=== PATIENT | male | born 1960 | race African-American/Black ===

== ENCOUNTER 2019-07-23 14:15 | Inpatient (IN) | payer OTHER ==
[2019-07-23 15:03] VITALS: BMI 21.5
--- NOTE | 2019-07-23 15:43 | HP ---
COWS - Scale Resting Pulse: 1= DC 81-100 (Pt has NEGATIVE UTOX for OPIATES) Sweatin=Flushed/Facial Moisture Restless Observation: 1= Difficult to Sit Still Pupil Size: 0= Normal to Room Light Bone or Joint Aches: 2= Severe Diffuse Aches Runny Nose/ Eye Tearin= Runny Nose/Eyes GI Upset > 30mins: 1= Stomach Cramp Tremor Observation: 2= Slight Tremor Visible Yawning Observation: 1= 1-2x During Session Anxiety or Irritability: 2=Irritable/Anxious Goose Flesh Skin: 0=Smooth Skin COWS Score: 14 CIWA Score Nausea/Vomitin Muscle Tremors: 4-Moderate,w/Arms Extend Anxiety: 3 Agitation: 1-Slight > Activity Paroxysmal Sweats: 3 Orientation: 0-Oriented Tacttile Disturbances: 0-None Auditory Disturbances: 0-None Visual Disturbances: 0-None Headache: 0-None Present CIWA-Ar Total Score: 13 - Admission Criteria OASAS Guidelines: Admission for Medically Managed Detox: Requires at least one of the followin. CIWA greater than 12 2. Seizures within the past 24 hours 3. Delirium tremens within the past 24 hours 4. Hallucinations within the past 24 hours 5. Acute intervention needed for co occurring medical disorder 6. Acute intervention needed for co occurring psychiatric disorder 7. Severe withdrawal that cannot be handled at a lower level of care (continued vomiting, continued diarrhea, abnormal vital signs) requiring intravenous medication and/or fluids 8. Patient presents the following: CIWA greater than 12, Seizures, delirium tremens or hallucinations in the past 12 hours Admission Criteria Met: Admission criteria met Admitting History and Physical - Admission Chief Complaint: alcohol and heroin detox History of Present Illness: Mr. Gottlieb is a 59 yo man with a pmhx of seizures, HTN, who presents for alcohol , crack, and heroin abuse and detox. The patient states he has been using for over 30 yrs and has done rehab 3 times. Most recently was about 6-8yrs ago in [place], he states he remained clean for 2 years but then he was around some friends who were drinking and using and he decided to start up again. He states he recently got a new apartment and so he would like to get clean to start a new life. He States he uses 1/2 budle of heroin daily (snorts it, used to inject but stopped ~12y ago). He is not currently enrolled in a suboxone or methadone program and never has been. He also states he is using 1g/ day of crack (smokes). He is also drinking roughly 2.5 pints of vodka per day. He states he needs to drink immediately upon waking because he gets sick. He also states he had a seizure once from alcohol withdrawal 8 years ago. He also endorses blacking out with drinking. Last drink was yesterday at 7-8pm before going to a [facility] in [place] because he knew he wanted to come here for detox / rehab. Pt would like to go to inpatient rehab after detox. Pt states the last time he used heroin was yesterday and last time he used crack was on . He also smokes 2-3 blunts/ day. Admission ROS [facility] Chief Complaint: detox from alcohol Allergies/Adverse Reactions: Allergies Allergy/AdvReac Type Severity Reaction Status Date / Time No Known Allergies Allergy Verified 07/23/19 14:48 - Ebola screening Have you traveled outside of the country in the last 21 days: No (N) Have you had contact with anyone from an Ebola affected area: No Do you have a fever: No - Review of Systems Constitutional: Chills, Diaphoresis, Loss of Appetite EENT: denies: Eye Pain, Ear Pain, Throat Pain Respiratory: reports: Cough, SOB with Exertion, Productive cough Cardiac: reports: Lightheadedness. denies: Chest Pain, Palpitations GI: reports: Nausea, Poor Appetite. denies: Constipated, Diarrhea, Vomiting : denies: Burning Musculoskeletal: reports: Back Pain, Joint Pain, Muscle Pain Integumentary: denies: Lumps, Pruritus, Rash Neuro: reports: Numbness (in fingers and toes), Tingling (in fingers and toes). denies: Headache Endocrine: reports: No Symptoms Reported Hematology: denies: Blood Clots, Easy Bleeding Psychiatric: reports: Anxious, Depressed, other (bipolar disorder) Other Systems: Reviewed and Negative Patient History - Smoking Cessation Smoking history: Current every day smoker Have you smoked in the past 12 months: Yes Aproximately how many cigarettes per day: 10 Initiated information on smoking cessation: Yes 'Breaking Loose' booklet given: 07/23/19 - Substances abused Alcohol Substance route: Oral Frequency: Daily Amount used: 3 pints of vodka Age of first use: 12 Date of last use: 07/23/19 Crack Substance route: Smoking Frequency: Daily Amount used: 1 gram Age of first use: 20 Date of last use: 07/22/19 Heroin Substance route: Injection Frequency: Daily Amount used: 6 bags Age of first use: 15 Date of last use: 07/22/19 Marijuana/Hashish Substance route: Smoking Frequency: Daily Amount used: 2 bags Age of first use: 12 Date of last use: 07/22/19 Admission Physical Exam S - Vital Signs Vital Signs: Vital Signs - 24 hr 07/23/19 14:44 Temperature 98.5 F Pulse Rate 84 Respiratory 20 Rate Blood Pressure 157/97 - Physical General Appearance: Yes: Within Normal Limits, Appropriately Dressed, Tremorous , Anxious HEENTM: Yes: EOMI, Hearing grossly Normal, Pharynx Normal, Other (poor dentition , missing top front teeth) Respiratory: Yes: Within Normal Limits, Lungs Clear, Normal Breath Sounds Neck: Yes: Within Normal Limits, No masses,lesions,Nodules, Trachea in good position Cardiology: Yes: Within Normal Limits, Regular Rhythm, Regular Rate, S1, S2 Abdominal: Yes: Normal Bowel Sounds, Non Tender, Flat, Soft, Hernia (reducible, diathasis of upper abdominal muscles) Back: Yes: Within Normal Limits, Normal Inspection. No: CVA Tenderness Musculoskeletal: Yes: Within Normal Limits, full range of Motion, Gait Steady Extremities: Yes: Within Normal Limits, Normal Capillary Refill, Normal Inspection, Non-Tender Neurological: Yes: Within Normal Limits, manager utility II-XII NML intact, Fully Oriented, Motor Strength 5/5, Normal Mood/Affect, Normal Response Integumentary: Yes: Within Normal Limits, Normal Color, Dry, Warm Lymphatic: Yes: Within Normal Limits Breathalyzer - Breathalyzer Breathalyzer: 0 Urine Drug Screen - Test Device Lot number: [id number] Expiration date: 02/18/21 - Control Is test valid?: Yes - Results Drug screen NEGATIVE: No Urine drug screen results: [facility] Inpatient Rehab Admission - Rehab Decision to Admit Inpatient rehab admission?: No
[2019-07-23] MEDS ORDERED: chlordiazePOXIDE HCL 25 MG CAPSULE PO PRN (16:03)
[2019-07-23] MEDS ORDERED: IBUPROFEN 400 MG TABLET (FP) PO PRN (16:03)
[2019-07-23] MEDS ORDERED: MAGNESIUM HYDROX 2400MG/30ML ORAL SUSPENSION 30 ML CUP PO PRN (16:03)
[2019-07-23] MEDS ORDERED: ACETAMINOPHEN 325 MG TABLET (FP) PO PRN ×2 (16:03)
[2019-07-23] MEDS ORDERED: MAGNESIUM CITRATE 300 ML BOTTLE PO PRN (16:03)
[2019-07-23] MEDS ORDERED: METHOCARBAMOL 500 MG TABLET PO PRN (16:03)
[2019-07-23] MEDS ORDERED: MAG HYDROX/AL HYDROX/SIMETH 30 ML UNIT-DOSE CUP PO PRN (16:03)
[2019-07-23] MEDS ORDERED: hydrOXYzine PAMOATE 25 MG CAPSULE (FP) PO PRN (16:03)
[2019-07-23] MEDS ORDERED: MENTHOL/PHENOL 1 EACH UD MM PRN (16:03)
[2019-07-23] MEDS ORDERED: BISMUTH SUBSALICYLATE 524 MG/30 ML UD PO PRN (16:03)
--- NOTE | 2019-07-23 16:17 | PN ---
Teaching Attending Note Name of Resident: Ute Hanson ATTENDING PHYSICIAN STATEMENT I saw and evaluated the patient. I reviewed the resident's note and discussed the case with the resident. I agree with the resident's findings and plan as documented. SUBJECTIVE: this 59 years old male with alcohol dependence,heroin abused, nicotine dependence seeking detox,syncope,seizure OBJECTIVE: Vital Signs Temperature 98.5 F 07/23/19 14:44 Pulse Rate 84 07/23/19 14:44 Respiratory Rate 07/23/19 14:44 Blood Pressure 157/97 07/23/19 14:44 O2 Sat by Pulse Oximetry (%) ASSESSMENT AND PLAN: this 59 years old male with alcohol dependence,heroin abused,syncope ,seizure, opiate is negative, need inpatient detox from alcohol,librium regimen,plan to go to out patient program after detox, patient aware he will not get methadone dx alcohol dependence with uncom withdrawal syncope seizure hypertension neuropathy heroin abused
[2019-07-23] MEDS: GABAPENTIN 400 MG CAPSULE (FP) PO SCH ×2 (17:09→23:25)
[2019-07-23] MEDS: chlordiazePOXIDE HCL 25 MG CAPSULE PO SCH ×2 (17:09→22:19)
[2019-07-23] MEDS: THIAMINE HCL 100 MG TABLET (FP) PO SCH (22:19)
[2019-07-23] MEDS: MELATONIN 5 MG TABLETS PO PRN (22:20)
[2019-07-24] MEDS: chlordiazePOXIDE HCL 25 MG CAPSULE PO SCH ×4 (05:17→22:38)
[2019-07-24] MEDS: GABAPENTIN 400 MG CAPSULE (FP) PO SCH ×3 (07:35→23:21)
[2019-07-24 10:12] LABS: HEMATOCRIT 39.8 % (35.4-49); HEMOGLOBIN 12.9 GM/dL (11.7-16.9); MCH 27.8 pg (25.7-33.7); MCHC 32.4 g/dl (32.0-35.9); MEAN CELL VOLUME 85.7 fl (80-96); MEAN PLT VOLUME 8.5 fl (7.5-11.1); PLATELET COUNT 230 K/MM3 (134-434); RBC 4.64 M/mm3 (4.00-5.60); WHITE BLOOD COUNT 7.3 K/mm3 (4.0-10.0)
[2019-07-24 10:16] LABS: ALBUMIN 3.6 g/dl (3.4-5.0); BILIRUBIN,TOTAL 0.5 mg/dL (0.2-1); CALCIUM 8.9 mg/dL (8.5-10.1); CREATININE 0.9 mg/dL (0.55-1.3); POTASSIUM 3.8 mmol/L (3.5-5.1)
[2019-07-24] MEDS: amLODIPine BESYLATE 10 MG TABLET (FP) PO SCH (10:17)
[2019-07-24] MEDS: PRENATAL VITAMINS W/ FOLIC ACID TABLET (FP) PO SCH (10:17)
[2019-07-24] MEDS: PANTOPRAZOLE 20 MG TABLET (FP) PO SCH (10:17)
[2019-07-24] MEDS ORDERED: ONDANSETRON *ODT* 4 MG TABLET SL ONE (10:32)
--- NOTE | 2019-07-24 11:47 | PN ---
[facility] CIWA - CIWA Score Nausea/Vomitin-Mild Nausea/No Vomiting Muscle Tremors: 2 Anxiety: 2 Agitation: 1-Slight > Activity Paroxysmal Sweats: 2 Orientation: 0-Oriented Tacttile Disturbances: 2-Mild Itch/Numbness/Burn Auditory Disturbances: 0-None Visual Disturbances: 0-None Headache: 0-None Present CIWA-Ar Total Score: 10 [facility] Progress Note (SOAP) Subjective: interrupted sleep, sweats, shakes , nausea, vomiting Objective: 07/24/19 11:52 Vital Signs Temperature 99.2 F 07/24/19 09:11 Pulse Rate 96 H 07/24/19 09:11 Respiratory Rate 18 07/24/19 09:11 Blood Pressure 129/85 07/24/19 09:11 O2 Sat by Pulse Oximetry (%) Laboratory Tests 07/24/19 07/24/19 07/24/19 07:40 07:40 07:40 WBC 7.3 RBC 4.64 Hgb 12.9 Hct 39.8 MCV 85.7 MCH 27.8 MCHC 32.4 RDW 15.0 Plt Count 230 MPV 8.5 Sodium 140 Potassium 3.8 Chloride 104 Carbon Dioxide 28 Anion Gap 8 BUN 8.0 Creatinine 0.9 Est GFR (CKD-EPI)AfAm 107.97 Est GFR (CKD-EPI)NonAf 93.16 Random Glucose 127 H Calcium 8.9 Total Bilirubin 0.5 AST 52 H ALT 44 Alkaline Phosphatase 86 Total Protein 7.0 Albumin 3.6 RPR Titer Nonreactive pt aox3 slightly uncomfortable appearing Assessment: 07/24/19 11:53 withdrawal sx's 07/24/19 11:53 cont detox increase fluids zofran prn
--- NOTE | 2019-07-24 13:27 | EKG ---
Test Reason : Blood Pressure : / mmHG Vent. Rate : 068 BPM Atrial Rate : 068 BPM P-R Int : 154 ms QRS Dur : 094 ms QT Int : 446 ms P-R-T Axes : 072 002 011 degrees QTc Int : 474 ms NORMAL SINUS RHYTHM MODERATE VOLTAGE CRITERIA FOR LVH, MAY BE NORMAL VARIANT BORDERLINE ECG NO PREVIOUS ECGS AVAILABLE Confirmed by SABRINA RODRIGUEZ MD ([id number]) on 07/24/2019 1:26:50 PM Referred By: Confirmed By:SABRINA RODRIGUEZ MD
[2019-07-24] MEDS: CYCLOBENZAPRINE HCL 5 MG TABLET PO SCH ×2 (15:21→22:38)
[2019-07-24] MEDS: THIAMINE HCL 100 MG TABLET (FP) PO SCH (22:38)
[2019-07-24] MEDS: MELATONIN 5 MG TABLETS PO PRN (22:40)
[2019-07-25] MEDS: CYCLOBENZAPRINE HCL 5 MG TABLET PO SCH ×3 (06:01→22:40)
[2019-07-25] MEDS: chlordiazePOXIDE HCL 25 MG CAPSULE PO SCH ×4 (06:14→22:40)
[2019-07-25] MEDS: PRENATAL VITAMINS W/ FOLIC ACID TABLET (FP) PO SCH (10:22)
[2019-07-25] MEDS: PANTOPRAZOLE 20 MG TABLET (FP) PO SCH (10:22)
[2019-07-25] MEDS: amLODIPine BESYLATE 10 MG TABLET (FP) PO SCH (10:22)
--- NOTE | 2019-07-25 10:24 | PN ---
S CIWA - CIWA Score Nausea/Vomitin-No Nausea/No Vomiting Muscle Tremors: None Anxiety: 3 Agitation: 0-Normal Activity Paroxysmal Sweats: 3 Orientation: 0-Oriented Tacttile Disturbances: 0-None Auditory Disturbances: 0-None Visual Disturbances: 0-None Headache: 2-Mild CIWA-Ar Total Score: 8 B[facility] Progress Note (SOAP) Subjective: c/o sweats, anxiety, headache, and interrupted sleep. Objective: 07/25/19 10:23 Vital Signs 07/25/19 07/25/19 07/25/19 03:30 05:56 09:08 Temperature 97.7 F 97.6 F Pulse Rate 67 90 Respiratory 18 18 18 Rate Blood Pressure 117/75 155/98 Laboratory Last Values WBC 7.3 K/mm3 (4.0-10.0) 07/24/19 07:40 RBC 4.64 M/mm3 (4.00-5.60) 07/24/19 07:40 Hgb 12.9 GM/dL (11.7-16.9) 07/24/19 07:40 Hct 39.8 % (35.4-49) 07/24/19 07:40 MCV 85.7 fl (80-96) 07/24/19 07:40 MCH 27.8 pg (25.7-33.7) 07/24/19 07:40 MCHC 32.4 g/dl (32.0-35.9) 07/24/19 07:40 RDW 15.0 % (11.9-15.9) 07/24/19 07:40 Plt Count 230 K/MM3 (134-434) 07/24/19 07:40 MPV 8.5 fl (7.5-11.1) 07/24/19 07:40 Sodium 140 mmol/L (136-145) 07/24/19 07:40 Potassium 3.8 mmol/L (3.5-5.1) 07/24/19 07:40 Chloride 104 mmol/L (98-107) 07/24/19 07:40 Carbon Dioxide 28 mmol/L (21-32) 07/24/19 07:40 Anion Gap 8 MMOL/L (8-16) 07/24/19 07:40 BUN 8.0 mg/dL (7-18) 07/24/19 07:40 Creatinine 0.9 mg/dL (0.55-1.3) 07/24/19 07:40 Est GFR (CKD-EPI)AfAm 107.97 07/24/19 07:40 Est GFR (CKD-EPI)NonAf 93.16 07/24/19 07:40 POC Glucometer 128 UNITS (80-120) 07/25/19 06:02 Random Glucose 127 mg/dL (74-106) H 07/24/19 07:40 Calcium 8.9 mg/dL (8.5-10.1) 07/24/19 07:40 Total Bilirubin 0.5 mg/dL (0.2-1) 07/24/19 07:40 AST 52 U/L (15-37) H 07/24/19 07:40 ALT 44 U/L (13-61) 07/24/19 07:40 Alkaline Phosphatase 86 U/L (45-117) 07/24/19 07:40 Total Protein 7.0 g/dl (6.4-8.2) 07/24/19 07:40 Albumin 3.6 g/dl (3.4-5.0) 07/24/19 07:40 RPR Titer Nonreactive (NONREACTIVE) 07/24/19 07:40 Labs noted. Assessment: 07/25/19 10:23 AOX3, in no acute respiratory distress. Full ROM, ambulating in the unit. Withdrawal symptoms. Plan: continue detox. Increase fluids.
[2019-07-25] MEDS: GABAPENTIN 400 MG CAPSULE (FP) PO SCH (11:09)
[2019-07-25] MEDS: GABAPENTIN 100 MG CAPSULE (FP) PO SCH ×2 (11:26→20:00)
[2019-07-25] MEDS: THIAMINE HCL 100 MG TABLET (FP) PO SCH (22:40)
[2019-07-26] MEDS ORDERED: chlordiazePOXIDE HCL 10 MG CAPSULE PO PRN
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
[2019-07-26] MEDS: GABAPENTIN 100 MG CAPSULE (FP) PO SCH ×2 (07:11→11:30)
[2019-07-26] MEDS: chlordiazePOXIDE HCL 10 MG CAPSULE PO SCH ×2 (07:12→11:30)
[2019-07-26] MEDS: CYCLOBENZAPRINE HCL 5 MG TABLET PO SCH ×2 (07:13→14:20)
--- NOTE | 2019-07-26 10:01 | PN ---
JAGUAR Progress Note Note: patient returned from emergency room [facility] with stitches in left eyebrow patient refused cat scan alert,oriented x 3 patient was contracted by [facility] patient agreed to be transferred to [facility],and follow the rule and regulation, will initiate head injury neuro watch,fall protocol1,and fall precaution
[2019-07-26] MEDS: amLODIPine BESYLATE 10 MG TABLET (FP) PO SCH (11:30)
[2019-07-26] MEDS: PANTOPRAZOLE 20 MG TABLET (FP) PO SCH (11:30)
[2019-07-26] MEDS: PRENATAL VITAMINS W/ FOLIC ACID TABLET (FP) PO SCH (11:30)
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
[2019-07-26 14:08] VITALS: BP 149/88; PULSE 94; TEMP 97.1
[2019-07-27] MEDS ORDERED: chlordiazePOXIDE HCL 10 MG CAPSULE PO SCH (05:00)
[2019-07-28] MEDS ORDERED: chlordiazePOXIDE HCL 10 MG CAPSULE PO ONE (05:00)
== END 2019-07-26 14:55 | disposition left against medical advice (07) | DRG 770 ==
LOC: YASAS 14:15 → Y3N 16:31 → Y6N 07-26 10:59
PROVIDERS: ADMIT Allergy & Immunology; ATTEND Allergy & Immunology
PROC: HZ2ZZZZ Detoxification Services for Substance Abuse Treatment (ICD-10-PCS; principal; 2019-07-22)
DX: F10.230 Alcohol dependence with withdrawal, uncomplicated (principal); F11.20 Opioid dependence, uncomplicated; F14.20 Cocaine dependence, uncomplicated; F17.210 Nicotine dependence, cigarettes, uncomplicated; I10 Essential (primary) hypertension; I25.10 Atherosclerotic heart disease of native coronary artery without angina pectoris; G40.909 Epilepsy, unspecified, not intractable, without status epilepticus; G62.9 Polyneuropathy, unspecified; S01.112A Laceration without foreign body of left eyelid and periocular area, initial encounter; Y04.0XXA Assault by unarmed brawl or fight, initial encounter; Y93.89 Activity, other specified; Y92.230 Patient room in hospital as the place of occurrence of the external cause
CPT/HCPCS: 36415; 80053; 82962; 85027; 86593; 93005; 93010; Q0162

== ENCOUNTER 2019-07-26 04:56 | Emergency (ER) | payer OTHER ==
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
[2019-07-26 05:24] VITALS: BP 132/85; PULSE 92; TEMP 97.7; BMI 21.5
[2019-07-26] MEDS ORDERED: DIPHTH,PERTUSS(ACELL),TET 0.5 ML DISP.SYRIN IM ONE ×2 (05:37→06:23)
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
[2019-07-26] MEDS ORDERED: ACETAMINOPHEN 325 MG TABLET (FP) ONE ×2 (06:23→07:27)
[2019-07-26] MEDS: ACETAMINOPHEN 500 MG TABLET (FP) PO ONE ×2 (06:31→07:30)
[2019-07-26] MEDS ORDERED: IBUPROFEN 600 MG TABLET (FP) PO ONE (07:27)
== END 2019-07-26 08:30 | disposition home or self-care (01) ==
LOC: JER 04:56
PROC: 3E0234Z Introduction of Serum, Toxoid and Vaccine into Muscle, Percutaneous Approach (ICD-10-PCS; principal; 2019-07-26)
PROC: 0HQ1XZZ Repair Face Skin, External Approach (ICD-10-PCS; 2019-07-26)
DX: S01.112A Laceration without foreign body of left eyelid and periocular area, initial encounter (principal); W19.XXXA Unspecified fall, initial encounter; Y04.8XXA Assault by other bodily force, initial encounter; Y93.89 Activity, other specified; Y92.89 Other specified places as the place of occurrence of the external cause; Y99.8 Other external cause status; I10 Essential (primary) hypertension; Z86.69 Personal history of other diseases of the nervous system and sense organs; Z87.19 Personal history of other diseases of the digestive system; F10.10 Alcohol abuse, uncomplicated; F14.10 Cocaine abuse, uncomplicated
CPT/HCPCS: 12011-25; 90471; 90715; 99284-25